=== PATIENT | male | born 1965 | race African-American/Black ===

== ENCOUNTER 2024-05-05 09:26 | Outpatient (AMB) | payer BC, SELFPAY ==
[2024-05-05 09:29] VITALS: BP 162/86; PULSE 87; O2SAT 96; BMI 39.2
--- NOTE | 2024-05-05 09:29 | HO.NEPHOV_ITS ---
Vital Signs 05/05/24 09:29 Height 6 ft Weight 289 lb BMI 39.2 BP 162/86 H Blood Pressure Location Lt brachial Position Sitting Pulse 87 Pulse Source Pulse Oximeter Pulse Oximetry (%) 96 Oxygen Delivery Method Room Air Intake Visit Reasons: ENP: Htn Canvas Shrinker Required: No Accompanied by: Self / Same As Patient Allergies No Known Allergies Allergy (Verified 05/05/24 09:31) Medication List - Last Reconciled 05/05/24 by Rich Rose MD amlodipine 5 mg PO DAILY aspirin 81 mg PO DAILY atorvastatin 40 mg PO DAILY carvedilol 12.5 mg PO DAILY irbesartan 300 mg PO DAILY metformin ER 500 mg PO DAILY semaglutide (Ozempic) 0.25 mg subcut QWEEK sildenafil 100 mg PO DAILY PRN tizanidine 4 mg PO BID PRN HPI Comments Details: Tommy is a pleasant 58-year-old man with a history of longstanding hypertension and diabetes mellitus since age of 39. He has a history of obesity as well. He has been referred for evaluation of resistant hypertension. Blood pressure has been difficult to control. He is on 3 antihypertensive medications. He was significantly obesity and recently started on Ozempic about 3 weeks ago. There has been no weight loss yet. He has a history of snoring. He wakes up multiple times at night to urinate. No dysuria urgency increased frequency. No palpitations no sweating. COUNT INCLUDES THE [facility] Medical History (Updated 05/05/24 @ 09:53 by Rich Rose MD) Tobacco abuse Chronic pain of both knees Type 2 diabetes mellitus with renal manifestations MELANIE (obstructive sleep apnea) Restrictive lung disease RLS (restless legs syndrome) Hypertension Hyperlipidemia Gout Surgical History History of shoulder surgery (~01/2011) Hx of colonoscopy Family History Mother Colon cancer HTN (hypertension) DJD (degenerative joint disease) Father Heart attack Review of Systems Const Denies fever(s) and Denies weight loss Card Denies chest pain Resp Denies cough and Denies hemoptysis GI Denies abdominal pain, Denies diarrhea and Denies nausea Musc Denies back pain Neuro Denies focal weakness Physical Exam Vital Signs: Last Vital Signs Pulse 87 03/26/25 09:29 BP 162/86 H 05/05/24 09:29 Pulse Ox 96 05/05/24 09:29 Oxygen Delivery Method Room Air 05/05/24 09:29 BMI result Body Mass Index 39.2 Const General: comfortable Nutritional Appearance: well nourished Orientation/consciousness: patient oriented x3 HEENT Head: No normal to inspection Mouth: moist mucous membranes Neck Neck: Yes supple and Yes no JVD Resp Auscultation: clear to auscultation bilaterally and no rales Cardio Jugular venous distension: no JVD Palpation: no palpable S3 and no palpable S4 Heart sounds: no rubs GI Palpation (GI): Soft to palpation and nontender Percussion: No Fluid wave present General: Yes no CVA tenderness Back/Spine/Pelvis Back: no CVA tenderness Skin General skin exam: no rashes or lesions noted Neuro General: patient oriented x3 Extrem General: Yes no pedal edema and No clubbing Results Reviewed Results Reviewed: Labs pending Nephrology Results: No Data to Display Assessment & Plan Assessment & Plan (1) Hypertension: Comment: Resistant hypertension in the setting of obesity and diabetes mellitus. He might have underlying obstructive sleep apnea which needs to be evaluated. Code(s): I10 - Essential (primary) hypertension Category: Medical Plan: Obtain 24 hour ambulatory blood pressure monitoring Stay on low-sodium diet Needs weight loss. We will referred for sleep evaluation to rule out sleep apnea. (2) Diabetes mellitus: Comment: Recent A1c is 11.5% Code(s): E11.9 - Type 2 diabetes mellitus without complications Category: Medical Plan Goal is to maintain A1c less than 7%. Discussed importance of tight control blood sugar to slow the portion disease We will screen for chronic kidney disease including urine protein creatinine ratio. Orders: Orders AMB 24 HR B/P Monitor PLACEMENT Today I10 - Essential (primary) hypertension UA and rflx microscopic Today E11.9 - Type 2 diabetes mellitus without complications, I10 - Essential (primary) hypertension Comprehensive Met. Panel Today E11.9 - Type 2 diabetes mellitus without complications, I10 - Essential (primary) hypertension Complete Blood Count no Diff Today E11.9 - Type 2 diabetes mellitus without complications, I10 - Essential (primary) hypertension Total Protein Urine Random Today E11.9 - Type 2 diabetes mellitus without complications, I10 - Essential (primary) hypertension Creatinine Urine Today E11.9 - Type 2 diabetes mellitus without complications, I10 - Essential (primary) hypertension Referrals Sleep Medicine Referral I10 - Essential (primary) hypertension Coding Level of Care Code New Pt Level 5 (02851) Diagnoses Hypertension I10 Diabetes mellitus E11.9
== END 2024-05-05 09:49 | disposition home or self-care (01) ==
PROVIDERS: PCP Internal Medicine; Referring Provider Internal Medicine; Visit Provider Internal Medicine Hypertension Specialist
DX: I10 Essential (primary) hypertension (principal); E11.9 Type 2 diabetes mellitus without complications
CPT/HCPCS: 99203

== ENCOUNTER 2024-05-05 09:26 | Outpatient (REF) | payer BC, SELFPAY ==
[2024-05-05 18:13] LABS: Appearance Urine Clear; Color Urine Yellow; Glucose Urine UA Negative (Negative); Leukocyte Esterase Urine Negative (Negative); Nitrite Urine Negative (Negative); Specific Gravity - Urine 1.015 (1.005-1.025); UMIC TRIGGER UA YES; Urine Blood Moderate (2+) (Negative); Urine Ketones Negative (Negative); Urine Protein 100 (2+) mg/dL (Neg-Trace)
[2024-05-05 18:19] LABS: Bacteria Urine None Seen (None Seen); Hyaline Casts Urine 0-2 /LPF (0-2); RBC Urine >20 /HPF (0-2); Squamous Epithelial Cell Urine 0-2 /HPF (0-2); WBC Urine 0-5 /HPF (0-5)
[2024-05-05 18:32] LABS: Hematocrit 38.2 % (42.0-52.0); Hemoglobin 12.4 g/dl (14.0-18.0); Mean Corpuscular HGB Conc 32.5 g/dl (31.0-36.0); Mean Corpuscular Hemoglobin 28.8 pg (27.0-33.0); Mean Corpuscular Volume 88.6 fL (80.0-98.0); Mean Platelet Volume 10.6 fL (9.4-12.4); Platelet Count 318 X10*3/uL (160-400); Red Blood Count 4.31 X10*6/uL (4.60-5.80); Red Cell Distribution Width 15.8 % (11.0-16.0); White Blood Count 9.3 X10*3/uL (4.8-10.8)
[2024-05-05 18:43] LABS: Creatinine Urine 114.47 mg/dL; Total Protein Urine Random 90 mg/dL (<12)
[2024-05-05 18:46] LABS: Alanine Aminotransferase 20 U/L (0-40); Alkaline Phosphatase 57 U/L (39-117); Anion Gap 10 (12-20); Aspartate Amino Transferase 21 U/L (5-37); Bilirubin Total 0.8 mg/dL (0.0-1.0); Blood Urea Nitrogen 18 mg/dL (9-16); Calcium 8.9 mg/dL (8.4-10.2); Carbon Dioxide 25 mmol/L (22-29); Chloride 109 mmol/L (96-108); Estimated Glomerular Filt Rate > 60; Glucose Random 169 mg/dL (60-115); Potassium 3.9 mmol/L (3.3-5.1); Sodium 140 mmol/L (135-145); Total Protein 7.3 g/dL (6.5-8.0)
== END 2024-05-05 09:27 | disposition home or self-care (01) ==
LOC: HO.HKASLDS 09:26
PROVIDERS: PCP Internal Medicine; Referring Provider Internal Medicine; Visit Provider Internal Medicine Hypertension Specialist
DX: I10 Essential (primary) hypertension (principal); E11.9 Type 2 diabetes mellitus without complications
CPT/HCPCS: 36415; 80053; 81001; 82570; 84156; 85027

== ENCOUNTER 2024-06-02 10:53 | Outpatient (AMB) | payer BC, SELFPAY ==
--- NOTE | 2024-06-02 10:55 | HO.NEPHOV_ITS ---
Vital Signs 06/02/24 10:56 Height 6 ft Weight 286 lb 4 oz BMI 38.8 BP 158/94 H Blood Pressure Location Lt brachial Position Sitting Pulse 99 Pulse Source Pulse Oximeter Pulse Oximetry (%) 96 Oxygen Delivery Method Room Air Intake Visit Reasons: 4-6 wks/ Conf Allergies No Known Allergies Allergy (Verified 06/02/24 10:58) Medication List - Last Reconciled 06/02/24 by Rich Rose MD amlodipine 5 mg PO DAILY aspirin 81 mg PO DAILY atorvastatin 40 mg PO DAILY carvedilol 12.5 mg PO DAILY irbesartan 300 mg PO DAILY metformin ER 500 mg PO DAILY semaglutide (Ozempic) 0.25 mg subcut QWEEK sildenafil 100 mg PO DAILY PRN tizanidine 4 mg PO BID PRN HPI Comments Details: Tommy is a pleasant 59-year-old man with a history of longstanding hypertension and diabetes mellitus since age of 39. He has a history of obesity as well. He has been referred for evaluation of resistant hypertension. Blood pressure has been difficult to control. He is on 3 antihypertensive medications. He was significantly obesity and recently started on Ozempic about 3 weeks ago. There has been no weight loss yet. He has a history of snoring. He wakes up multiple times at night to urinate. No dysuria urgency increased frequency. No palpitations no sweating. 06.02.24 Here for follow up Lost few lbs Still has edema Waiting for ABPM And Sleep evaluation [facility] Medical History Tobacco abuse Chronic pain of both knees Type 2 diabetes mellitus with renal manifestations MELANIE (obstructive sleep apnea) Restrictive lung disease RLS (restless legs syndrome) Hypertension Hyperlipidemia Gout Surgical History History of shoulder surgery (~01/2011) Hx of colonoscopy Family History Mother Colon cancer HTN (hypertension) DJD (degenerative joint disease) Father Heart attack Physical Exam Vital Signs: Last Vital Signs Pulse 99 06/02/24 10:56 BP 158/94 H 06/02/24 10:56 Pulse Ox 96 06/02/24 10:56 Oxygen Delivery Method Room Air 06/02/24 10:56 BMI result Body Mass Index 38.8 Const General: comfortable Nutritional Appearance: well nourished Orientation/consciousness: patient oriented x3 HEENT Head: No normal to inspection Mouth: moist mucous membranes Neck Neck: Yes supple and Yes no JVD Resp Auscultation: clear to auscultation bilaterally and no rales Cardio Jugular venous distension: no JVD Palpation: no palpable S3 and no palpable S4 Heart sounds: no rubs GI Palpation (GI): Soft to palpation and nontender Percussion: No Fluid wave present General: Yes no CVA tenderness Back/Spine/Pelvis Back: no CVA tenderness Skin General skin exam: no rashes or lesions noted Neuro General: patient oriented x3 Extrem General: Yes no pedal edema and No clubbing Results Reviewed Nephrology Results: Hgb 12.4 g/dl (14.0-18.0) L 05/05/24 WBC 9.3 X10*3/uL (4.8-10.8) 05/05/24 Plt Count 318 X10*3/uL (160-400) 05/05/24 Sodium 140 mmol/L (135-145) 05/05/24 Potassium 3.9 mmol/L (3.3-5.1) 05/05/24 Chloride 109 mmol/L (96-108) H 05/05/24 Carbon Dioxide 25 mmol/L (22-29) 05/05/24 BUN 18 mg/dL (9-16) H 05/05/24 Creatinine 1.15 mg/dL (0.5-1.4) 05/05/24 Calcium 8.9 mg/dL (8.4-10.2) 05/05/24 Urine Protein 100 (2+) mg/dL (Neg-Trace) H 05/05/24 Urine Creatinine 114.47 mg/dL 05/05/24 Assessment & Plan Assessment & Plan (1) Hypertension: Comment: Resistant hypertension in the setting of obesity and diabetes mellitus. He might have underlying obstructive sleep apnea which needs to be evaluated. Code(s): I10 - Essential (primary) hypertension Category: Medical Plan: Increase Coreg to 25 mg BID from 12.5 mg BID Obtain 24 hour ambulatory blood pressure monitoring ( reordered) Stay on low-sodium diet Needs weight loss. Await sleep evaluation to rule out sleep apnea. (2) Diabetes mellitus: Comment: Recent A1c is 11.5% Code(s): E11.9 - Type 2 diabetes mellitus without complications Category: Medical (3) Proteinuria: Code(s): R80.9 - Proteinuria, unspecified Category: Medical Plan: Keep on ARB Discussed weight loss and tight controll of Blood sugar and BP Needs weight loss Plan Goal is to maintain A1c less than 7%. Discussed importance of tight control blood sugar to slow the portion disease We will screen for chronic kidney disease including urine protein creatinine ratio. Orders: Orders AMB 24 HR B/P Monitor PLACEMENT Today I10 - Essential (primary) hypertension Basic Metabolic Panel 3 Months E11.9 - Type 2 diabetes mellitus without complications, I10 - Essential (primary) hypertension, R80.9 - Proteinuria, unspecified Medications: Changed From carvedilol must administer with a meal/food 25 mg PO DAILY To carvedilol must administer with a meal/food 25 mg PO BID 60 tabs 3RF Coding Level of Care Code Est Pt Level 4 (09492) Diagnoses Hypertension I10 Diabetes mellitus E11.9 Proteinuria R80.9
[2024-06-02 10:56] VITALS: BP 158/94; PULSE 99; O2SAT 96; BMI 38.8
--- OUTSIDE RECORDS SUMMARY | 2024-06-02 13:04 | XMS_ITS | Clinical Summary ---
Author Organization [address] [facility] Address [address] [place] [address] Phone Care Team Providers Care Air Saw Operator Name Role Phone Aldo Rogers MD Primary Care Provider Allergies No known active allergies Medications amLODIPine (NORVASC) 5 mg tablet Take 1 tablet (5 mg total) by mouth 2 (two) times a day. 3 Active aspirin 81 mg EC tablet Take 1 tablet (81 mg total) by mouth. 1 Active atorvastatin (LIPITOR) 40 mg tablet Take 1 tablet (40 mg total) by mouth 1 (one) time each day. 3 Active blood pressure test kit (BLOOD PRESSURE MONITOR [facility]) Check Blood Pressure three times weekly. Record values and bring list into all appointments. 7 Active coenzyme Q-10 100 mg capsule Take 1 capsule (100 mg total) by mouth. Active blood sugar diagnostic (FreeStyle Lite Strips) test strip Check twice a day 2 Active Ozempic 0.25 mg or 0.5 mg (2 mg/3 mL) injection pen INJECT 0.25MG UNDER THE SKIN EVERY 7 DAYS FOR THE FIRST MONTH, AFTER THE FIRST MONTH INCREASE TO 0.5 MG EVERY 7 DAYS 3 mL 5 4 Active metFORMIN XR (GLUCOPHAGE-XR) 500 mg 24 hr tablet TAKE 1 TABLET(500 MG) BY MOUTH 1 TIME EACH DAY 60 tablet 1 5 Active sildenafiL (VIAGRA) 100 mg tablet Take 1 tablet (100 mg total) by mouth if needed for erectile dysfunction. 10 tablet 3 5 05/28/19 Active carvediloL (COREG) 12.5 mg tablet Take 1 tablet (12.5 mg total) by mouth 2 (two) times a day with meals. 180 tablet 1 Active blood-glucose meter kit by Not Applicable route 2 (two) times a day. 1 kit 1 Active tiZANidine (ZANAFLEX) 4 mg tablet Take 1 tablet (4 mg total) by mouth 1 (one) time each day if needed for muscle spasms. 30 tablet 3 Active irbesartan (AVAPRO) 300 mg tablet Take 1 tablet (300 mg total) by mouth 1 (one) time each day. 90 tablet 1 Active Active Problems Problem Noted Date Diagnosed Date Tobacco abuse 04/07/2023 Chronic pain of both knees 12/30/2017 Type 2 diabetes mellitus wit h renal manifestations ([facility] V24, [facility] V28) 12/24/2017 Obstructive sleep apnea 10/30/2016 Restrictive lung disease 10/30/2016 RLS (restless legs syndrome) 02/08/2011 HTN (hypertension) 02/12/2010 Microalbuminuria 12/01/2008 Hyperlipidemia 12/01/2007 Gout 12/24/2006 Encounters Date Type Department Care Team Description 04/29/2024 Telephone Internal Medicine [address] [phone] Aldo Rogers MD faxed order (L&C) 04/27/2024 Telephone Internal Medicine [address] [phone] Aldo Rogers MD 04/22/2024 9:15 AM EDT Office Visit Internal Medicine [address] [phone] Aldo Rogers MD Primary hypertension (Primary Dx); Diabetes mellitus type 1.5, managed as type 2 ([facility] V24, [facility] V28); Hypercholesterolemia; Midline low back pain with bilateral sciatica, unspecified chronicity 04/22/2024 Telephone Internal Medicine [address] [phone] Aldo Rogers MD from Last 3 Months Immunizations Name Administration Dates Next Due Influenza trivalent, with pr eservative (Fluzone; Afluria) 6mo and older 01/11/2011 Td Tetanus diptheria (Tdvax) 7yo and older 02/11 Surgical History Surgery Date Site/Laterality Comments SHOULDER SURGERY 01/24/11 PROCEDURE: HISTORICAL SHOULDER SURGERY; COMMENT: right Rory COLONOSCOPY 10/15 PROCEDURE: HISTORICAL COLONOSCOPY; COMMENT: Angel; neg; R 10 y Medical History Medical History Date Comments Tobacco abuse 12/24/2006 DX:Tobacco abuse Gout 12/24/2006 DX:Gout Unspecified essential hypertension 02/12/2010 DX:Unspecified essential hypertension Hypercholesteremia 12/01/2007 DX:Hyperchole steremia Obstructive sleep apnea syndrome 10/30/2016 DX:Obstructive sleep apnea syndrome Proteinuria 12/01/2008 DX:Proteinuria Restrictive lung disease 10/30/2016 DX:Rest rictive lung disease RLS (restless legs syndrome) 02/08/2011 DX: RLS (restless legs syndrome) Type 2 diabetes mellitus wit h renal manifestations (CMS/HCC V24, CMS/HCC V28) 02/18/2010 DX:Type 2 diabetes mellitus with renal manifestations ([facility]) Microalbuminuria 12/01/2008 DX:Microalbumin uria HTN (hypertension) 02/12/2010 DX:HTN (hyper tension) Family History Medical History Relation Name Comments Heart attack Father 40s Colon cancer Mother HTN,DJD Blindness Neg Hx Cataracts Neg Hx Glaucoma Neg Hx Macular degeneration Neg Hx Strabismus Neg Hx Relation Name Status Comments Father Mother Social History Tobacco Use Types Packs/Day Years Used Date Smoking Tobacco: Former Cigarettes Smokeless Tobacco: Never Alcohol Use Standard Drinks/Week Comments Yes 0 (1 standard drink = 0.6 oz pur e alcohol) Sex and Gender Information Value Date Recorded Sex Assigned at Not on file Legal Sex Male 12:36 AM EST Gender Identity Not on file Sexual Orientation Not on file Obstetrics History Last Filed Vital Signs Vital Sign Reading Time Taken Comments Blood Pressure 160/92 04/22/2024 9:28 AM EDT Pulse 85 04/22/2024 9:28 AM EDT Temperature 35.8 ??C (96.4 ??F) 04/22/2024 9:28 AM ED T Respiratory Rate - - Oxygen Saturation 97% 04/22/2024 9:28 AM EDT Inhaled Oxygen Concentration - - Weight 129 kg (283 lb 6.4 oz) 04/22/2024 9:28 AM EDT Height 182.9 cm (6') 07/21/2023 1:00 PM EDT Body Mass Index 38.44 07/21/2023 1:00 PM EDT Plan of Treatment Upcoming Encounters Date Type Department Care Team (Late st Contact Info) Description 07/28/2024 9:30 AM EDT Office Visit Internal Medicine - [place] [address] [facility] [address] [place] [phone] Aldo Rogers MD [address] [facility] [address] [place] [address] Health Maintenance Due Date Last Done Comments Pneumococcal Vaccine: 50+ Years (1 of 2 - PCV) 05/24/1983 Pneumococcal Vaccine: Pediatrics (0 to 5 Years) and At-Risk Patients (6 to 64 Years) (1 of 2 - PCV) 05/24/1983 Diabetes: Annual Foot Exam 02/12/2011 02/12/2010 Diabetes: Annual Retina Eye Exam 01/23/2012 01/22/2011 DTaP,Tdap,and Td Vaccines (2 - Td or Tdap) 02/11/2014 02/12/2004 Zoster Vaccines (1 of 2) 2014 Depression Screening 01/20/2022 Diabetes: Annual Urine Albumin-Creatinine Ratio (uACR) 01/20/2022 06/01/2018 HIV Screening 01/20/2022 Social Influencers of Health Screening 01/20/2022 Colorectal Cancer Screening: Colonoscopy 09/30/2023 09/29/2018 COVID-19 Vaccine (2023-2 5 season) 2023 04/07/2021, 06/01/2020, 05/04/2020 Diabetes: Blood Sugar Contro l Test (HGBA1C) 01/20/2024 07/21/2023, 03/17/2023 RSV Immunization Adult Patients (1 - Risk 60-74 years 1-dose series) 2024 Diabetes: Annual GFR (Glomerular Filtration Rate) 09/28/2024 09/29/2023 Hypertension/CHF/CAD Annual BMP Blood Test 09/28/2024 09/29/2023 Influenza Vaccine (Season Ended) 2024 01/11/2011 Cholesterol Screening (Lipid Panel) 03/17/2028 03/17/2023 Hepatitis C Screening Completed 01/17/2011 HIB Vaccines Aged Out No longer eligi ble based on patient's age to complete this topic HPV Vaccines Aged Out No longer eligi ble based on patient's age to complete this topic Hepatitis A Vaccines Aged Out No long er eligible based on patient's age to complete this topic Hepatitis B Vaccines Aged Out No long er eligible based on patient's age to complete this topic IPV Vaccines Aged Out No longer eligi ble based on patient's age to complete this topic MMR Vaccines Aged Out No longer eligi ble based on patient's age to complete this topic Meningococcal ACWY Vaccine Aged Out N o longer eligible based on patient's age to complete this topic Meningococcal B Vaccine Aged Out No l onger eligible based on patient's age to complete this topic RSV Immunization Patients Under 20 months Aged Out No longer eligible b ased on patient's age to complete this topic Varicella Vaccines Aged Out No longer eligible based on patient's age to complete this topic Procedures Procedure Name Priority Date/Time Associated Diagnosis Comments EXTERNAL CLINICAL LAB 05/05/2024 EXTERNAL CLINICAL LAB 05/05/2024 HEMOGLOBIN A1C Routine 03/17/2023 LIPID PANEL Routine 03/17/2023 COLONOSCOPY Routine 09/29/2018 URINE ALBUMIN CREATININE RATIO Routine 06/01/2018 HEPATITIS C SCREENING Routine 01/17/2011 from Last 3 Months or Most Recently Relevant to Health Maintenance Results * External clinical lab (05/05/2024) Only the most recent of2 resultswithin the time period is included. us Provider [facility] LAB BLOOD ORDERABLES Fin al Result * Hemoglobin A1c (03/17/2023) Hemoglobin A1C 11.5 % Blood Venous blood specimen / Unknown Result [facility] Provider LAB BLOOD ORDERABLES Mar l Result * Lipid panel (03/17/2023) [facility] LDL/HDL Ratio 4 Triglycerides 187 mg/dL Cholesterol 175 mg/dL HDL 44 mg/dL LDL Cholesterol 94 mg/dL Blood Venous blood specimen / Unknown Result [facility] Provider LAB BLOOD ORDERABLES Mar l Result * Colonoscopy (09/29/2018) Pathologist Counts include 234 beds at the [facility] Colonoscopy Negative Anatomical Region Laterality Modality Other Result [facility] Provider HEALTH MAINTENANCE Final Result * Urine Albumin Creatinine Ratio (06/01/2018) [facility] Urine Albumin Creatinine Ratio 222.7 Result [facility] Provider HEALTH MAINTENANCE Final Result * Hepatitis C Screening (01/17/2011) [facility] Hepatitis C Screening Negative Result [facility] Provider HEALTH MAINTENANCE Final Result from Last 3 Months or Most Recently Relevant to Health Maintenance Insurance Advance Directives Documents on File Type Date Recorded 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 Health Care Decision (hx) 07/15/2020 AD HERNANDEZ DIRECTIVE Health Care Decision (hx) 07/15/2020 AD HERNANDEZ DIRECTIVE Health Care Decision (hx) 07/15/2020 AD HERNANDEZ DIRECTIVE Health Care Decision (hx) 11/15/2013 AD HERNANDEZ DIRECTIVE Health Care Decision (hx) 11/15/2013 AD HERNANDEZ DIRECTIVE Health Care Decision (hx) 11/15/2013 AD HERNANDEZ DIRECTIVE Health Care Decision (hx) 11/12/2013 AD HERNANDEZ DIRECTIVE Health Care Decision (hx) 11/12/2013 AD HERNANDEZ DIRECTIVE Health Care Decision (hx) 11/12/2013 AD HERNANDEZ DIRECTIVE Care Teams Air Saw Operator Relationship Specialty Start Date End Date Aldo Rogers MD [address] [place] [address] PCP - General Internal Medicine 12/30/17
== END 2024-06-02 11:17 | disposition home or self-care (01) ==
LOC: HO.HKAS 10:54
PROVIDERS: PCP Internal Medicine; Visit Provider Internal Medicine Hypertension Specialist
DX: I10 Essential (primary) hypertension (principal); E11.9 Type 2 diabetes mellitus without complications; R80.9 Proteinuria, unspecified
CPT/HCPCS: 99214

== ENCOUNTER 2024-07-08 14:56 | Outpatient (AMB) | payer BC, SELFPAY ==
[2024-07-08 14:58] VITALS: BP 156/94; PULSE 92; O2SAT 96; BMI 38.8
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
== END 2024-07-08 15:57 | disposition home or self-care (01) ==
LOC: HO.HSMS 14:57
PROVIDERS: PCP Internal Medicine; Visit Provider Physician Assistant Medical
DX: H81.90 Unspecified disorder of vestibular function, unspecified ear (principal); R26.89 Other abnormalities of gait and mobility; R41.89 Other symptoms and signs involving cognitive functions and awareness; G47.19 Other hypersomnia
CPT/HCPCS: 99204

== ENCOUNTER 2024-07-20 09:07 | Outpatient (REF) | payer BC, SELFPAY ==
[2024-07-20 18:19] LABS: Estimated Average Glucose 163 mg/dL; Hemoglobin A1c % 7.3 % (<6.0)
[2024-07-20 18:48] LABS: Alanine Aminotransferase 25 U/L (0-40); Albumin Level 4.4 g/dL (3.5-5.0); Alkaline Phosphatase 58 U/L (39-117); Anion Gap 13 (12-20); Aspartate Amino Transferase 23 U/L (5-37); Bilirubin Total 0.7 mg/dL (0.0-1.0); Blood Urea Nitrogen 13 mg/dL (9-16); Calcium 9.2 mg/dL (8.4-10.2); Carbon Dioxide 27 mmol/L (22-29); Chloride 105 mmol/L (96-108); Estimated Glomerular Filt Rate > 60; Glucose Random 132 mg/dL (60-115); Potassium 3.6 mmol/L (3.3-5.1); Sodium 141 mmol/L (135-145); Total Protein 7.5 g/dL (6.5-8.0)
[2024-07-20 18:54] LABS: Ferritin 289 ng/mL (20-250); TSH reflex Free T4 1.63 uIU/mL (0.32-4.0); Vitamin D 25-OH Total 14.7 ng/mL (>30)
[2024-07-20 19:06] LABS: Folate 6.1 ng/mL (> or = 4.0); Vitamin B12 397 pg/mL (200-900)
[2024-07-24 04:28] LABS: Methylmalonic Acid 142 nmol/L (69-390)
== END 2024-07-20 09:08 | disposition home or self-care (01) ==
LOC: HO.HKASLDS 09:07
PROVIDERS: Visit Provider Physician Assistant Medical
DX: R41.89 Other symptoms and signs involving cognitive functions and awareness (principal); G47.19 Other hypersomnia; R53.83 Other fatigue; G47.9 Sleep disorder, unspecified; Z13.1 Encounter for screening for diabetes mellitus
CPT/HCPCS: 36415; 80053; 82306; 82607; 82728; 82746; 83036; 83921; 84443

== ENCOUNTER 2024-07-22 14:43 | Outpatient (AMB) | payer BC, SELFPAY ==
[2024-07-22 14:53] VITALS: BP 144/72; PULSE 90; O2SAT 96; BMI 38.9
--- NOTE | 2024-07-22 14:53 | HO.NEPHOV ---
Vital Signs 07/22/24 14:53 Height 6 ft Weight 287 lb BMI 38.9 BP 144/72 H Blood Pressure Location Rt brachial Position Sitting Pulse 90 Pulse Source Pulse Oximeter Pulse Oximetry (%) 96 Oxygen Delivery Method Room Air Intake Visit Reasons: Hypertension/Conf Human Resources Office Assistant Required: No Accompanied by: Self / Same As Patient Allergies No Known Allergies Allergy (Verified 07/22/24 14:55) Medication List - Last Reconciled 07/22/24 by Rich Rose MD amlodipine 5 mg PO DAILY aspirin 81 mg PO DAILY atorvastatin 40 mg PO DAILY carvedilol 25 mg PO BID cholecalciferol (vitamin D3) 50 mcg PO DAILY 3 months MDD 2000 units irbesartan 300 mg PO DAILY metformin ER 500 mg PO DAILY semaglutide (Ozempic) 0.25 mg subcut QWEEK sildenafil 100 mg PO DAILY PRN tizanidine 4 mg PO BID PRN HPI Comments Details: Tommy is a pleasant 59-year-old man with a history of longstanding hypertension and diabetes mellitus since age of 39. He has a history of obesity as well. He has been referred for evaluation of resistant hypertension. Blood pressure has been difficult to control. He is on 3 antihypertensive medications. He was significantly obesity and recently started on Ozempic about 3 weeks ago. There has been no weight loss yet. He has a history of snoring. He wakes up multiple times at night to urinate. No dysuria urgency increased frequency. No palpitations no sweating. 06.02.24 Here for follow up Lost few lbs Still has edema Waiting for ABPM And Sleep evaluation 07/22/24 59-year-old male presenting with hypertension management concerns. He reports previous effective management with lisinopril combined with a diuretic, which was subsequently altered to irbesartan alone by a different provider, resulting in increased blood pressure levels. The patient noted fluid retention, particularly in the hands and fingers. He reports waking multiple times during the night due to the need to urinate, tracing these disturbances to around 2:30 to 3:00 A.M., despite managing fluid intake. The patient notes dissatisfaction with the current regimen and requests to return to a treatment plan that previously showed efficacy. Additionally, the patient reports an elevated serum glucose level of 7.3% and has initiated vitamin D supplementation. His kidney function has been stable, which is reassuring. He seeks a more effective approach to manage his hypertension, considering his comorbid conditions, including sleep disturbances and elevated blood glucose levels. [facility] Medical History Tobacco abuse Chronic pain of both knees Type 2 diabetes mellitus with renal manifestations MELANIE (obstructive sleep apnea) Restrictive lung disease RLS (restless legs syndrome) Hypertension Hyperlipidemia Gout Surgical History History of shoulder surgery (~01/2011) Hx of colonoscopy Family History Mother Colon cancer HTN (hypertension) DJD (degenerative joint disease) Father Heart attack Physical Exam Vital Signs: Last Vital Signs Pulse 90 07/22/24 14:53 BP 144/72 H 07/22/24 14:53 Pulse Ox 96 07/22/24 14:53 Oxygen Delivery Method Room Air 07/22/24 14:53 BMI result Body Mass Index 38.9 Results Reviewed Nephrology Results: Hgb 12.4 g/dl (14.0-18.0) L 05/05/24 WBC 9.3 X10*3/uL (4.8-10.8) 05/05/24 Plt Count 318 X10*3/uL (160-400) 05/05/24 Sodium 141 mmol/L (135-145) 07/20/24 Potassium 3.6 mmol/L (3.3-5.1) 07/20/24 Chloride 105 mmol/L (96-108) 07/20/24 Carbon Dioxide 27 mmol/L (22-29) 07/20/24 BUN 13 mg/dL (9-16) 07/20/24 Creatinine 0.97 mg/dL (0.5-1.4) 07/20/24 Calcium 9.2 mg/dL (8.4-10.2) 07/20/24 Urine Protein 100 (2+) mg/dL (Neg-Trace) H 05/05/24 Urine Creatinine 114.47 mg/dL 05/05/24 Assessment & Plan Assessment & Plan (1) Hypertension: Comment: Resistant hypertension in the setting of obesity and diabetes mellitus. He might have underlying obstructive sleep apnea which needs to be evaluated. Code(s): I10 - Essential (primary) hypertension Category: Medical Plan: Keep Coreg to 25 mg BID Obtain 24 hour ambulatory blood pressure monitoring ( reordered) Stay on low-sodium diet Needs weight loss. Await sleep evaluation to rule out sleep apnea. Change Irbesartan to Irbesartan HCT 300/12.5 QD ( 07/22/24) (2) Diabetes mellitus: Comment: Recent A1c is 11.5% Code(s): E11.9 - Type 2 diabetes mellitus without complications Category: Medical Qualifiers: Diabetes mellitus complication status: with other specified complication Diabetes mellitus type: type 2 (3) Proteinuria: Code(s): R80.9 - Proteinuria, unspecified Category: Medical Plan: Keep on ARB Discussed weight loss and tight controll of Blood sugar and BP Needs weight loss Plan Goal is to maintain A1c less than 7%. Discussed importance of tight control blood sugar to slow the portion disease We will screen for chronic kidney disease including urine protein creatinine ratio. Orders: Orders AMB 24 HR B/P Monitor PLACEMENT Today I10 - Essential (primary) hypertension Medications: New irbesartan-hydrochlorothiazide 300-12.5 mg 1 tab PO DAILY 30 tabs 3RF Coding Level of Care Code Est Pt Level 4 (84835) Diagnoses Hypertension I10 Diabetes mellitus E11.9 Diabetes mellitus complication status: with other specified complication Diabetes mellitus type: type 2 Proteinuria R80.9
== END 2024-07-22 15:17 | disposition home or self-care (01) ==
LOC: HO.HKA 14:44
PROVIDERS: PCP Internal Medicine; Visit Provider Internal Medicine Hypertension Specialist
DX: I10 Essential (primary) hypertension (principal); E11.9 Type 2 diabetes mellitus without complications; R80.9 Proteinuria, unspecified
CPT/HCPCS: 99214

== ENCOUNTER → 2024-07-22 14:43 | Outpatient (BNVA) | payer BC, SELFPAY | PROVIDERS: PCP Internal Medicine; Visit Provider Internal Medicine Hypertension Specialist ==

== ENCOUNTER 2024-08-10 14:49 | Outpatient (AMB) | payer BC, SELFPAY ==
[2024-08-10 14:52] VITALS: BP 136/82; PULSE 81; O2SAT 97; BMI 38.3
--- NOTE | 2024-08-10 14:52 | A.OFFVIS_ITS ---
Vital Signs 08/10/24 14:52 Height 6 ft Weight 282 lb 3.067 oz BMI 38.3 BP 136/82 Blood Pressure Location Rt brachial Position Sitting Pulse 81 Pulse Source Pulse Oximeter Pulse Oximetry (%) 97 Oxygen Delivery Method Room Air Intake Visit Reasons: Type 2 diabetes mellitus without complications Intake Note: New patient internally referred by Neurology for T2DM Management. Last Diabetic Eye exam: Pending appt Last Podiatry Visit: Pending appt Most Recent HgA1C: 7.3%, 07/20/2024 Random Glucose: 127 mg/dL Post Office Markup Clerk Required: No Accompanied by: Self / Same As Patient Allergies No Known Allergies Allergy (Verified 08/10/24 14:55) HPI Comments Details: This is a 59-year-old male with a past medical history of vitamin-D deficiency, proteinuria, hypertension and diabetes presenting for an initial consult for ty pe 2 diabetes. He was diagnosed with diabetes 20 years ago. Does not have his glucometer with him today. He reports that his fasting blood sugars are 120-140, and his blood sugars in the evening are in the 140s. Hemoglobin a1c 7.3% 07/20/24. Current medication regimen: Ozempic 0.5 mg weekly (taking this dose for the past 3 weeks), metformin extended release 500 mg daily. He lost 5 lb in the last few weeks. Compliance issues: None Diet: Breakfast- fruit and protein like chicken her sausage Lunch- meat and fruit Dinner- meat and fruit, fish, salad Seldomly has juice. Avoids sugary foods and desserts. Drinks water throughout the day. He drinks beer, and he does smoke cigarettes. Exercise: walks daily Hypoglycemia symptoms: none Hyperglycemia symptoms: dry mouth, polydipsia Microvascular complications: neuropathy, nephropathy (proteinuria). He is followed by Nephrology. Macrovascular complications: TIA (204) Hypertension: treated with your irbesartan-hydrochlorothiazide 300-12.5 mg daily, carvedilol 25 mg twice daily, amlodipine 5 mg daily Hyperlipidemia: treated with atorvastatin 40 mg daily LDL at goal <100. ROS: Constitutional: No unexplained weight loss, fever, chills, fatigue or night sweats. Respiratory: No shortness of breath Cardiovascular: No chest pain or pedal edema Gastrointestinal: No anorexia, nausea, vomiting or diarrhea. No abdominal pain Neurologic: Endorses mild tingling in his toes Endocrine: No cold or heat intolerance. No polyuria or polydipsia. Physical exam: Constitutional: Alert, in no distress. Neck: Supple, Full range of motion. No lymphadenopathy. No palpable thyroid masses. Respiratory: Clear to auscultation. Cardiovascular: S1 S2 regular. No murmurs. Feet: declined examination [facility] Medical History (Updated 08/10/24 @ 15:37 by SANDER Tai) Obesity Type II diabetes mellitus with neurological manifestations Tobacco abuse Chronic pain of both knees Type 2 diabetes mellitus with renal manifestations MELANIE (obstructive sleep apnea) Restrictive lung disease RLS (restless legs syndrome) Hypertension Hyperlipidemia Gout Surgical History History of shoulder surgery (~01/2011) Hx of colonoscopy Family History Mother Colon cancer HTN (hypertension) DJD (degenerative joint disease) Father Heart attack Physical Exam Vital Signs: Last Vital Signs Pulse 81 08/10/24 14:52 BP 136/82 08/10/24 14:52 Pulse Ox 97 08/10/24 14:52 Oxygen Delivery Method Room Air 08/10/24 14:52 BMI result Body Mass Index 38.3 Results Reviewed Results Reviewed: Laboratory Last Values Glucose (Clinic) 127 mg/dL (60-115) H 08/10/24 15:02 Laboratory Tests 05/05/24 05/05/24 07/20/24 09:59 10:03 09:10 Plt Count 318 Creatinine 0.97 Estimated GFR > 60 Hemoglobin A1c % 7.3 H AST 23 ALT 25 TSH 1.63 U Random Total Protein 90 H Urine Creatinine 114.47 Assessment & Plan Assessment & Plan (1) Type II diabetes mellitus with neurological manifestations: Code(s): E11.49 - Type 2 diabetes mellitus with other diabetic neurological complication Category: Medical (2) Obesity: Code(s): E66.9 - Obesity, unspecified Category: Medical Qualifiers: Obesity type: due to excess calories Obesity classification: adult class 2 (BMI 35 - 39.9) Serious obesity comorbidity presence: with serious comorbidity Body mass index: BMI 38.0-38.9 Qualified Code(s): E66.812 - Obesity, class 2; E66.01 - Morbid (severe) obesity due to excess calories; Z68.38 - Body mass index [BMI] 38.0-38.9, adult Plan Discussed pathophysiology of Type II Diabetes Mellitus with the patient in detail.? I explained the terminal manager risks and complications associated with uncontrolled diabetes including nephropathy, neuropathy, peripheral vascular disease, retinopathy, increased risk of heart disease and stroke.? Discussed lifestyle modification with the patient. Recommended 30 minutes of moderately vigorous exercise 5 days per week to promote weight loss. Continue routine eye exams for diabetes. Patient defers referral to certified adaptive physical educator and dietitian. He is not intere sted in his CGM at this time. Advised patient to bring his glucometer to all appointments. Reviewed written instructions to treat hypoglycemia. Glucose tablets sent to the pharmacy. Continue Ozempic 0.5 mg weekly. Continue metformin extended release 500 mg daily. We discussed increasing Ozempic to 1 mg and potentially discontinuing metformin at his next visit. Follow up in 1 month for type 2 diabetes. Medications: New glucose (Dex4 Glucose Quick Dissolve) until symptoms of low blood sugar are controlled 16 grams (4 x 4 gram) PO Q15M PRN 30 tabs 3RF hypoglycemia Patient Instructions: Continue Ozempic 0.5 mg weekly Continue Metformin extended release 500 mg daily If you experience low blood sugar (70), treat this by eating a chewable fruit candy like skittles or jelly beans (about 8 pieces), 4 ounces (1/2 cup) of fruit juice (not diet), 1 tablespoon of honey or 4 glucose tablets. If your blood sugar is under 55, take double the amount of one of the above. Recheck your blood sugar in 15 minutes. Coding Level of Care Code New Pt Level 4 (69861) Complex EM visit Add On G2211 Diagnoses Type II diabetes mellitus with neurological manifestations E11.49 Class 2 severe obesity due to excess calories with serious comorbidity and body mass index (BMI) of 38.0 to 38.9 in adult E66.812; E66.01; Z68.38 Obesity type: due to excess calories Obesity classification: adult class 2 (BMI 35 - 39.9) Serious obesity comorbidity presence: with serious comorbidity Body mass index: BMI 38.0-38.9
[2024-08-10 15:07] LABS: Glucose, Whole Blood 127 mg/dL (60-115)
--- OUTSIDE RECORDS SUMMARY | 2024-08-10 15:47 | XMS_ITS | Clinical Summary ---
Author Organization [address] [facility] Address [address] [place] [address] Phone Care Team Providers Care Wellness Manager Name Role Phone Aldo Rogers MD Primary Care Provider [phone] Allergies No known active allergies Medications amLODIPine (NORVASC) 5 mg tablet Take 1 tablet (5 mg total) by mouth 2 (two) times a day. 08/09/19 23 Active aspirin 81 mg EC tablet Take 1 tablet (81 mg total) by mouth. 10/20/19 21 Active blood pressure test kit (BLOOD PRESSURE MONITOR [facility]) Check Blood Pressure three times weekly. Record values and bring list into all appointments. 06/27/19 17 Active coenzyme Q-10 100 mg capsule Take 1 capsule (100 mg total) by mouth. Active blood sugar diagnostic (FreeStyle Lite Strips) test strip Check twice a day 07/25/19 22 Active metFORMIN XR (GLUCOPHAGE-X R) 500 mg 24 hr tablet TAKE 1 TABLET(500 MG) BY MOUTH 1 TIME EACH DAY 60 tablet 1 04/17/19 25 Active sildenafiL (VIAGRA) 100 mg tablet Take 1 tablet (100 mg total) by mouth if needed for erectile dysfunction. 10 tablet 3 04/23/19 25 026 Active carvediloL (COREG) 12.5 mg tablet Take 1 tablet (12.5 mg total) by mouth 2 (two) times a day with meals. 180 tablet 1 04/23/19 25 Active blood-glucose meter kit by Not Applicable route 2 (two) times a day. 1 kit 1 04/23/19 25 Active tiZANidine (ZANAFLEX) 4 mg tablet Take 1 tablet (4 mg total) by mouth 1 (one) time each day if needed for muscle spasms. 30 tablet 3 04/23/19 25 Active irbesartan (AVAPRO) 300 mg tablet Take 1 tablet (300 mg total) by mouth 1 (one) time each day. 90 tablet 1 04/29/19 25 Active atorvastatin (LIPITOR) 40 mg tablet Take 1 tablet (40 mg total) by mouth 1 (one) time each day. 90 each 07/14/19 25 025 Active Ozempic 0.25 mg or 0.5 mg (2 mg/3 mL) injection pen INJECT 0.25 MG SUBCUTANEOUS EVERY WEEK FOR FIRST 28 DAYS 3 mL 5 08/03/19 25 Active atorvastatin (LIPITOR) 40 mg tablet Take 1 tablet (40 mg total) by mouth 1 (one) time each day. 12/26/19 23 025 Discontinued(R eorder) Ozempic 0.25 mg or 0.5 mg (2 mg/3 mL) injection pen INJECT 0.25MG UNDER THE SKIN EVERY 7 DAYS FOR THE FIRST MONTH, AFTER THE FIRST MONTH INCREASE TO 0.5 MG EVERY 7 DAYS 3 mL 5 01/09/20 24 025 Discontinued Active Problems Problem Noted Date Diagnosed Date Tobacco abuse 04/07/2023 Chronic pain of both knees 12/30/2017 Type 2 diabetes mellitus wit h renal manifestations ([facility] V24, [facility] V28) 12/24/2017 Obstructive sleep apnea 10/30/2016 Restrictive lung disease 10/30/2016 RLS (restless legs syndrome) 02/08/2011 HTN (hypertension) 02/12/2010 Microalbuminuria 12/01/2008 Hyperlipidemia 12/01/2007 Gout 12/24/2006 Immunizations Name Administration Dates Next Due Influenza trivalent, with pr eservative (Fluzone; Afluria) 6mo and older 01/11/2011 Td Tetanus diptheria (Tdvax) 7yo and older 02/11 Surgical History Surgery Date Site/Laterality Comments SHOULDER SURGERY 01/24/11 PROCEDURE: HISTORICAL SHOULDER SURGERY; COMMENT: Rory, right COLONOSCOPY 10/15 PROCEDURE: HISTORICAL COLONOSCOPY; COMMENT: Angel; [...] DX:Type 2 diabetes mellitus with renal manifestations (HCC) Microalbuminuria 12/01/2008 DX:Microalbumin uria HTN (hypertension) 02/12/2010 [...] 85 04/22/2024 9:28 AM EDT Temperature 35.8 C (96.4 F) 04/22/2024 9:28 AM EDT Respiratory Rate - - Oxygen Saturation 97% 04/22/2024 9:28 AM EDT Inhaled Oxygen Concentration - - Weight 129 kg (283 lb 6.4 oz) 04/22/2024 9:28 AM EDT Height 182.9 cm (6') 07/21/2023 1:00 PM EDT Body Mass Index 38.44 07/21/2023 1:00 PM EDT Plan of Treatment Health Maintenance Due Date Last Done Comments [...] Cancer Screening: Colonoscopy 09/30/2023 09/29/2018 COVID-19 Vaccine ( - 2023-2 5 season) 2023 04/07/2021, 06/01/2020, 05/04/2020 Diabetes: [...] Procedure Name Priority Date/Time Associated Diagnosis Comments HOMOCYSTEINE, SERUM Routine 07/20/2024 9 :46 AM EDT Fatigue Sleep disorder, unspecified Other symptoms and signs involving cognitive functions and awareness Other hypersomnia HEMOGLOBIN A1C Routine 03/17/2023 LIPID PANEL Routine 03/17/2023 HM COLONOSCOPY Routine 09/29/2018 HM URINE ALBUMIN CREATININE RATIO Routine 06/01/2018 HEPATITIS C SCREENING Routine 01/17/2011 from Last 3 Months or Most Recently Relevant to Health Maintenance Results * Homocysteine, total (07/20/2024 9:46 AM EDT) Homocysteine 9.4 3.2 - 10.7 mcmol/L LAB CHEMISTRY METHOD 07/20/2024 1:34 PM EDT [facility] Blood Venous blood specimen / Unknown Venipuncture / Unknown 07/20/2024 9:46 AM EDT 07/20/2024 11:20 AM EDT Amalia BOUCHER LAB BLOOD ORDERABLES Final Resu lt [facility] [address] [place] [address], * Hemoglobin A1c (03/17/2023) Hemoglobin A1C 11.5 % Blood Venous blood specimen / Unknown Historical Provider LAB BLOOD ORDERABLES Mar l Result * Lipid panel (03/17/2023) LDL/HDL Ratio 4 Triglycerides 187 mg/dL Cholesterol 175 mg/dL HDL 44 mg/dL LDL Cholesterol 94 mg/dL Blood Venous blood specimen / Unknown Historical Provider LAB BLOOD ORDERABLES Mar l Result * Colonoscopy (09/29/2018) Pathologist [facility] Colonoscopy Negative Anatomical Region Laterality Modality Other [facility] Provider HEALTH MAINTENANCE Final Result * Urine Albumin Creatinine Ratio (06/01/2018) Pathologist [facility] Urine Albumin Creatinine Ratio 222.7 Historical Provider HEALTH MAINTENANCE Final Result * Hepatitis C Screening (01/17/2011) Pathologist [facility] Hepatitis C Screening Negative Historical Provider HEALTH MAINTENANCE Final Result from Last 3 Months or Most Recently Relevant to Health Maintenance Insurance [employer] Advance Directives Documents on File Type Date Recorded 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
== END 2024-08-10 15:32 | disposition home or self-care (01) ==
LOC: HO.ENCR 14:49
PROVIDERS: PCP Internal Medicine; Visit Provider Physician Assistant Medical
DX: E11.49 Type 2 diabetes mellitus with other diabetic neurological complication (principal); E66.812 Obesity, class 2; E66.01 Morbid (severe) obesity due to excess calories; Z68.38 Body mass index [BMI] 38.0-38.9, adult

== ENCOUNTER → 2024-08-10 14:49 | Outpatient (BNVA) | payer BC, SELFPAY | PROVIDERS: PCP Internal Medicine; Visit Provider Physician Assistant Medical | DX: E11.49 Type 2 diabetes mellitus with other diabetic neurological complication (principal) | CPT/HCPCS: 82947 ==

== ENCOUNTER → 2024-11-15 10:26 | Outpatient (BNV) | payer BC, SELFPAY | PROVIDERS: PCP Internal Medicine; Visit Provider Psychiatry & Neurology Neurology | DX: G47.33 Obstructive sleep apnea (adult) (pediatric) (principal) | CPT/HCPCS: 95806 ==

== ENCOUNTER → 2024-11-16 13:31 | Outpatient (REF) | payer BC, SELFPAY ==
--- OUTSIDE RECORDS SUMMARY | 2024-11-16 16:35 | XMS_ITS | Clinical Summary ---
Author Organization 175 [facility] Address [address] [place] [address] Phone Care Team Providers Care Instrument Man Name Role Phone Aldo Rogers MD Primary Care Provider [phone] Allergies No known active allergies Medications aspirin 81 mg EC tablet Take 1 tablet (81 mg total) by mouth. 1 Active blood pressure test kit (BLOOD PRESSURE MONITOR [facility]) Check Blood Pressure three times weekly. Record values and bring list into all appointments. 7 Active coenzyme Q-10 100 mg capsule Take 1 capsule (100 mg total) by mouth. Active blood sugar diagnostic (FreeStyle Lite Strips) test strip Check twice a day 2 Active metFORMIN XR (GLUCOPHAGE-XR ) 500 mg 24 hr tablet TAKE 1 TABLET(500 MG) BY MOUTH 1 TIME EACH DAY 60 tablet 1 5 Active sildenafiL (VIAGRA) 100 mg tablet Take 1 tablet (100 mg total) by mouth if needed for erectile dysfunction. 10 tablet 3 5 026 Active carvediloL (COREG) 12.5 mg tablet Take 1 tablet (12.5 mg total) by mouth 2 (two) times a day with meals. 180 tablet 1 5 Active blood-glucose meter kit by Not Applicable route 2 (two) times a day. 1 kit 1 5 Active tiZANidine (ZANAFLEX) 4 mg tablet Take 1 tablet (4 mg total) by mouth 1 (one) time each day if needed for muscle spasms. 30 tablet 3 5 Active irbesartan (AVAPRO) 300 mg tablet Take 1 tablet (300 mg total) by mouth 1 (one) time each day. 90 tablet 1 5 Active Ozempic 0.25 mg or 0.5 mg (2 mg/3 mL) injection pen INJECT 0.25 MG SUBCUTANEOUS EVERY WEEK FOR FIRST 28 DAYS 3 mL 5 5 Active amLODIPine (NORVASC) 10 mg tablet Take 1 tablet (10 mg total) by mouth 1 (one) time each day. 90 tablet 1 5 Active atorvastatin (LIPITOR) 40 mg tablet Take 1 tablet (40 mg total) by mouth 1 (one) time each day. 90 each 5 025 Active atorvastatin (LIPITOR) 40 mg tablet Take 1 tablet (40 mg total) by mouth 1 (one) time each day. 90 each 5 025 Discontin ued(Reord er) Active Problems Problem Noted Date Diagnosed Date Tobacco abuse 04/07/2023 Chronic pain of both knees 12/30/2017 Type 2 diabetes mellitus wit h renal manifestations ([facility] V24, [facility] V28) 12/24/2017 Obstructive sleep apnea 10/30/2016 Restrictive lung disease 10/30/2016 RLS (restless legs syndrome) 02/08/2011 HTN (hypertension) 02/12/2010 Microalbuminuria 12/01/2008 Hyperlipidemia 12/01/2007 Gout 12/24/2006 Immunizations Immunization Administration Dates Next Due Influenza trivalent, with [...] Years (1 of 2 - PCV) 05/24/1983 Diabetes: Annual Foot Exam 02/12/2011 02/12/2010 Diabetes: Annual Retina Eye Exam 01/23/2012 01/22/2011 DTaP,Tdap,and Td Vaccines (2 - Td or Tdap) 02/11/2014 02/12/2004 Zoster Vaccines (1 of 2) 2014 Diabetes: Annual Urine Albumin-Creatinine Ratio (uACR) 01/20/2022 06/01/2018 HIV Screening 01/20/2022 Social Influencers of Health Screening 01/20/2022 Colorectal Cancer Screening: Colonoscopy 09/30/2023 09/29/2018 Diabetes: Blood Sugar Contro l Test (HGBA1C) 01/20/2024 07/21/2023, 03/17/2023 Depression Screening 02/11/2024 RSV Immunization Adult Patients (1 - Risk 60-74 years 1-dose series) 2024 Diabetes: Annual GFR (Glomerular Filtration Rate) 09/28/2024 09/29/2023 Hypertension/CHF/CAD Annual BMP Blood Test 09/28/2024 09/29/2023 COVID-19 Vaccine (2024-03 6 season) 2024 04/07/2021, 06/01/2020, 05/04/2020 Influenza Vaccine (#1) 2024 01/11/2011 Cholesterol Screening (Lipid Panel) 03/17/2028 [...] Procedure Name Priority Date/Time Associated Diagnosis Comments HEMOGLOBIN A1C Routine 03/17/2023 LIPID PANEL Routine 03/17/2023 HM COLONOSCOPY Routine 09/29/2018 URINE ALBUMIN CREATININE RATIO Routine 06/01/2018 HEPATITIS C SCREENING Routine 01/17/2011 from Last 3 Months or Most Recently Relevant to Health Maintenance Results * Hemoglobin A1c (03/17/2023) Pathologist [facility] Hemoglobin A1C 11.5 % Blood Venous blood specimen / Unknown Result [facility] Provider LAB BLOOD ORDERABLES Mar l Result * Lipid panel (03/17/2023) Pathologist [facility] LDL/HDL Ratio 4 Triglycerides 187 mg/dL Cholesterol 175 mg/dL HDL 44 mg/dL LDL Cholesterol 94 mg/dL Blood Venous blood specimen / Unknown Result [facility] Provider LAB BLOOD ORDERABLES Mar l Result * Colonoscopy (09/29/2018) Pathologist [facility] Colonoscopy Negative Anatomical Region Laterality Modality Other [facility] Provider HEALTH MAINTENANCE Final Result * Urine Albumin Creatinine Ratio (06/01/2018) Pathologist [facility] Urine Albumin Creatinine Ratio 222.7 [facility] Provider HEALTH MAINTENANCE Final Result * Hepatitis C Screening (01/17/2011) Pathologist [facility] Hepatitis C Screening Negative [facility] Provider HEALTH MAINTENANCE Final Result from Last 3 Months or Most Recently Relevant to Health Maintenance Insurance [facility] Advance Directives Documents on File Type Date Recorded 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
--- OUTSIDE RECORDS SUMMARY | 2024-11-16 16:35 | XMS_ITS | Encounter Summary ---
Author Organization [facility] Address [address] [facility] [address] [place] [phone] Phone Care Team Providers Care Farm Implement Engine Mechanic Name Role Phone Pcp, Not Required Primary Care Provider Unavaila ble Encounter Details Date Type Department Care Team (Late st Contact Info) Description 03/21/2017 Procedure Pass [facility] [address] [place] [address] Social History Tobacco Use Types Packs/Day Years Used Date Smoking Tobacco: Former Cigarettes Q uit: 2017 Smokeless Tobacco: Never Alcohol Use Standard Drinks/Week Comments Yes 6 (1 standard drink = 0.6 oz pur e alcohol) Sex and Gender Information Value Date Recorded Sex Assigned at Not on file Legal Sex Male 3:46 PM EST Gender Identity Not on file Sexual Orientation Not on file documented as of this encounter Plan of Treatment Not on file documented as of this encounter Visit Diagnoses Not on filedocumented in this encounter Care Teams Farm Implement Engine Mechanic Relationship Specialty Start Date End Date Pcp, Not Required [address] [place] [id number] PCP - General 03/19/17 documented as of this encounter Additional Source Comments The information contained in this document represents components of the legal health record. It is not the complete legal health record.[facility]
--- OUTSIDE RECORDS SUMMARY | 2024-11-16 16:35 | XMS_ITS ---
[facility] Name [facility] Organization Unknown Care Team Organization Name Specialty Phone Email Start Date End Da te [facility] 09/29/2024 [facility] CLEMENTINE DURON Primary Care 12/18/2021 09/29/19 24
--- OUTSIDE RECORDS SUMMARY | 2024-11-16 16:35 | XMS_ITS | Clinical Summary ---
Author Organization [facility] Address [address] [address] Phone Care Team Providers Care Pasting Machine Offbearer Name Role Phone Pcp, Not Required Primary Care Provider Unavaila ble Allergies No known active allergies Medications atorvastatin (LIPITOR) 40 MG tablet Take 40 mg by mouth daily. Active lisinopril-hydro CHLOROthiazide (PRINZIDE,ZESTOR ETIC) 20-12.5 mg per tablet Take 1 tablet by mouth daily. Active metFORMIN (GLUCOPHAGE) 1000 MG tablet Take 1,000 mg by mouth 2 (two) times a day with meals. Active canagliflozin (INVOKANA) 100 mg tablet Take 100 mg by mouth daily. Active aspirin 81 MG EC tablet Take 81 mg by mouth daily. Active metoprolol succinate (TOPROL-XL) 50 MG 24 hr tablet Take 50 mg by mouth daily. Active coenzyme Q10 100 mg capsule Take 100 mg by mouth daily. Active amLODIPine (NORVASC) 5 MG tablet Take 5 mg by mouth daily. Active Active Problems Problem Noted Date Diagnosed Date Dyspnea on exertion 03/21/2017 MELANIE (obstructive sleep apnea) 03/21/2017 Essential hypertension 03/21/2017 Abnormal stress ECG 03/21/2017 Social History Tobacco Use Types Packs/Day Years Used Date Smoking Tobacco: Former Cigarettes Q uit: 2017 Smokeless Tobacco: Never Alcohol Use Standard Drinks/Week Comments Yes 6 (1 standard drink = 0.6 oz pur e alcohol) Education Answer Date Recorded Are you interested in more education? Not on giuseppe e 06/07/2022 Are you concerned about learning? Not on file 06/07/2022 No 06/07/2022 No 06/07/2022 Digital Access Answer Date Recorded No 07/06/2022 No 07/06/2022 No 07/06/2022 Reliable internet access at home? Not on file 07/06/2022 Device with a working camera? Not on file Sex and Gender Information Value Date Recorded Sex Assigned at Not on file Legal Sex Male 3:46 PM EST Gender Identity Not on file Sexual Orientation Not on file Last Filed Vital Signs Vital Sign Reading Time Taken Comments Blood Pressure 146/98 03/21/2017 2:00 PM EST Pulse 72 03/21/2017 2:00 PM EST Temperature 36.1 C (97 F) 03/21/2017 11:30 AM EST Respiratory Rate 11 03/21/2017 9:27 AM EST Oxygen Saturation 100% 03/21/2017 2:00 PM EST Inhaled Oxygen Concentration - - Weight 122.5 kg (270 lb) 03/17/2017 9:17 AM EST Height 182.9 cm (6') 03/17/2017 9:17 AM EST Body Mass Index 36.62 03/17/2017 9:17 AM EST Plan of Treatment Health Maintenance Due Date Last Done Comments BLOOD PRESSURE 1964 CREATININE LEVEL 1964 LIPID PANEL 1964 POTASSIUM LEVEL 1964 DEPRESSION SCREENING 1976 SMOKING Hx and SMOKELESS TOB ACCO SCREENING 1977 HEPATITIS C SCREENING 1982 HIV ONE-TIME SCREENING (18-6 5 YEARS) 1982 COLOGUARD 2009 COLONOSCOPY 2009 COLORECTAL CANCER SCREENING 2009 FIT TEST 2009 FOBT 2009 SIGMOIDOSCOPY 2009 VIRTUAL COLONOSCOPY 2009 Adult Td,Tdap Booster 02/11/2014 02/12/2004 PNEUMOCOCCAL VACCINES (50+ y ears) (1 of 1 - PCV) 2014 ZOSTER VACCINES (1 of 2) 2014 RSV VACCINE (1 - Risk 60-74 years 1-dose series) 2024 INFLUENZA VACCINE (#1) 2024 01/11/2011 COVID-19 VACCINE (2 - 2024-2 6 season) 2024 05/04/2020 HEPATITIS A VACCINES Aged Out No long er eligible based on patient's age to complete this topic HIB VACCINES Aged Out No longer eligi ble based on patient's age to complete this topic MENINGOCOCCAL VACCINES (ACWY) Aged Out No longer eligible based on patient's age to complete this topic MENINGOCOCCAL VACCINES (B) Aged Out N o longer eligible based on patient's age to complete this topic Medical Devices Implanted Type Area Tax Expert Device Identifier Shelf Expiration Date Model / Serial / Lot [place] In Shoulder Insurance Member Subscriber Plan / Payer (Ef fective 2017-Present) Name:Tommy Valadez Relation to Subscriber:Self Name:Tommy Valadez Payer ID:Not on file Group ID:Not on file Type:Medicaid Address: [address] Member Subscriber Plan / Payer (Ef fective 2017-Present) Name:Tommy Valadez Relation to Subscriber:Self Name:Tommy Valadez Payer ID:Not on file Group ID:Not on file Type:Medicaid Address: [address] CROSS [facility] CROSS OUT [facility] Member Subscriber Plan / Payer (Ef fective 2017-Present) Name:Tommy Valadez Relation to Subscriber:Self Name:Tommy Valadez Payer ID:Not on file Group ID:Not on file Type:Medicaid Address: [place] [id number] [employer] CROSS OUT [facility] BL[facility] CROSS OUT OF [facility] Member Subscriber Plan / Payer (Ef fective 2017-Present) Name:Tommy Valadez Relation to Subscriber:Self Name:Tommy Valadez Payer ID:Not on file Group ID:Not on file Type:Medicaid Address: [place] [id number] [employer] CROSS OUT [facility] [place] CROSS OUT [facility] HMO Care Teams Pasting Machine Offbearer Relationship Specialty Start Date End Date Pcp, Not Required [address] [place] [phone] PCP - General 03/19/17 Additional Source Comments The information contained in this document represents components of the legal health record. It is not the complete legal health record.[facility]
== END ==
LOC: HO.SL 13:31
PROVIDERS: PCP Internal Medicine; Visit Provider Physician Assistant Medical
DX: G47.19 Other hypersomnia (principal); G47.33 Obstructive sleep apnea (adult) (pediatric)
CPT/HCPCS: 95806

== ENCOUNTER 2024-12-10 14:18 | Outpatient (AMB) | payer BC, SELFPAY ==
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
[2024-12-10 14:42] VITALS: BP 140/90; PULSE 76; O2SAT 96; BMI 38.2
--- OUTSIDE RECORDS SUMMARY | 2024-12-10 14:58 | XMS_ITS | Encounter Summary ---
Author Organization [facility] Address [address] [facility] [address] [place] [id number] Phone Care Team Providers Care Pay Clerk Name Role Phone Pcp, Not Required Primary Care Provider Unavaila ble Encounter Details Date Type Department Care Team (Late st Contact Info) Description 03/21/2017 Procedure Pass [facility] [address] [place] [address] Social History Tobacco Use Types Packs/Day Years [...] on filedocumented in this encounter Care Teams Pay Clerk Relationship Specialty Start Date End Date Pcp, Not Required [address] [place] [id number] PCP - General 03/19/17 documented as of this encounter Additional Source Comments The information contained in this document represents components of the legal health record. It is not the complete legal health record.[facility]
--- OUTSIDE RECORDS SUMMARY | 2024-12-10 14:58 | XMS_ITS | Clinical Summary ---
Author Organization [address] [facility] Address [address] [place] [address] Phone Care Team Providers Care Freight Car Repairer Name Role Phone Aldo Rogers MD Primary Care Provider [phone] Allergies No known active allergies Medications aspirin 81 mg EC tablet Take 1 tablet (81 mg total) by mouth. 1 Active blood pressure test kit (BLOOD PRESSURE MONITOR [facility]) Check Blood Pressure three times weekly. Record values and bring list into all appointments. 7 Active coenzyme Q-10 100 mg capsule Take 1 capsule (100 mg total) by mouth. Active blood sugar diagnostic (FreeStyle Lite Strips) test strip Check twice a day 2 Active metFORMIN XR (GLUCOPHAGE-XR) 500 mg 24 hr tablet TAKE 1 TABLET(500 MG) BY MOUTH 1 TIME EACH DAY 60 tablet 1 5 Active sildenafiL (VIAGRA) 100 mg tablet Take 1 tablet (100 mg total) by mouth if needed for erectile dysfunction. 10 tablet 3 5 05/28/19 26 Active carvediloL (COREG) 12.5 mg tablet Take [...] (one) time each day. 90 each 5 01/26/20 25 Active Active Problems Problem Noted Date Diagnosed Date Tobacco abuse 04/07/2023 Chronic pain of both knees 12/30/2017 Type 2 diabetes mellitus wit h renal manifestations ([facility] V24, [facility] V28) 12/24/2017 Obstructive sleep apnea [...] (2 - Td or Tdap) 02/11/2014 02/12/2004 RSV Immunization Adult Patients (1 - Risk 50-74 years 1-dose series) 2014 Zoster Vaccines (1 of 2) 2014 Diabetes: Annual Urine Albumin-Creatinine Ratio (uACR) 01/20/2022 06/01/2018 HIV Screening 01/20/2022 Social Influencers of Health Screening 01/20/2022 Colorectal Cancer Screening: Colonoscopy 09/30/2023 09/29/2018 Diabetes: Blood Sugar Contro l Test (HGBA1C) 01/20/2024 07/21/2023, 03/17/2023 Depression Screening 02/11/2024 Diabetes: Annual GFR (Glomerular Filtration Rate) 09/28/2024 09/29/2023 Hypertension/CHF/CAD Annual BMP Blood Test 09/28/2024 09/29/2023 COVID-19 Vaccine (4 - 2024-2 6 season) 2024 04/07/2021, 06/01/2020, 05/04/2020 Influenza [...] Maintenance Results * Hemoglobin A1c (03/17/2023) Pathologist [facility] Hemoglobin A1C 11.5 % Blood Venous blood specimen / Unknown [facility] Provider LAB BLOOD ORDERABLES Mar l Result * Lipid panel (03/17/2023) Pathologist [facility] LDL/HDL Ratio 4 Triglycerides 187 mg/dL Cholesterol 175 mg/dL HDL 44 mg/dL LDL Cholesterol 94 mg/dL Blood Venous blood specimen / Unknown Result [facility] Provider LAB BLOOD ORDERABLES Mar l Result * Colonoscopy (09/29/2018) Pathologist [facility] Colonoscopy Negative Anatomical Region Laterality Modality Other Result [facility] Provider HEALTH MAINTENANCE Final Result * Urine Albumin Creatinine Ratio (06/01/2018) Pathologist [facility] Urine Albumin Creatinine Ratio 222.7 [facility] Provider HEALTH MAINTENANCE Final Result * Hepatitis C Screening (01/17/2011) Pathologist [facility] Hepatitis C Screening Negative [facility] Provider HEALTH MAINTENANCE Final Result from Last 3 Months or Most Recently Relevant to Health Maintenance Insurance [facility] Advance Directives Documents on File Type Date Recorded Patient Physical Instructor Expl anation Health Care Decision (hx) 07/15/2020 [...] (hx) 11/12/2013 AD HERNANDEZ DIRECTIVE Care Teams Freight Car Repairer Relationship Specialty Start Date End Date Aldo Rogers MD [address] [place] [address] PCP - General Internal Medicine 12/30/17
--- OUTSIDE RECORDS SUMMARY | 2024-12-10 14:58 | XMS_ITS | Clinical Summary ---
Author Organization [facility] Address [address] [address] Phone Care Team Providers Care Manager Trade Marketing Name Role Phone Pcp, Not Required Primary [...] ears) (1 of 1 - PCV) 2014 RSV VACCINE (1 - Risk 50-74 years 1-dose series) 2014 ZOSTER VACCINES (1 of 2) 2014 INFLUENZA VACCINE (#1) 2024 01/11/2011 COVID-19 VACCINE [...] this topic Medical Devices Implanted Type Area Chief Information Officer Device Identifier Shelf Expiration Date Model / Serial / Lot [place] In Shoulder Insurance Member Subscriber Plan / Payer (Ef fective 2017-Present) Name:Tommy Valadez Relation to Subscriber:Self Name:Tommy aVladez Payer ID:Not on file Group ID:Not on file Type:Medicaid Address: [address] Member Subscriber Plan / Payer (Ef fective 2017-Present) Name:Tommy Valadez Relation to Subscriber:Self Name:Tommy Valadez Payer ID:Not on file Group ID:Not on file Type:Medicaid Address: [address] [place]OSS [place] [facility] [place] Member Subscriber Plan / Payer (Ef fective 2017-Present) Name:Tommy Valadez Relation to Subscriber:Self Name:Tommy Valadez Payer ID:Not on file Group ID:Not on file Type:Medicaid Address: [place] [id number] [employer] CROSS OUT [facility] [employer] CROSS OUT OF [facility] Member Subscriber Plan / Payer (Ef fective 2017-Present) Name:Tommy Valadez Relation to Subscriber:Self Name:Tommy Valadez Payer ID:Not on file Group ID:Not on file Type:Medicaid Address: [place] [id number] [place] CROSS OUT [facility] CROSS OUT OF [facility] HMO Care Teams Manager Trade Marketing Relationship Specialty Start Date End Date Pcp, Not Required [address] [place] [id number] PCP - General 03/19/17 Additional Source Comments The information contained in this document represents components of the legal health record. It is not the complete legal health record.[facility]
== END 2024-12-10 15:17 | disposition home or self-care (01) ==
LOC: HO.HSMS 14:18
PROVIDERS: PCP Internal Medicine; Visit Provider Physician Assistant Medical
DX: G47.19 Other hypersomnia (principal); F17.200 Nicotine dependence, unspecified, uncomplicated; M53.86 Other specified dorsopathies, lumbar region; H83.2X3 Labyrinthine dysfunction, bilateral; R26.89 Other abnormalities of gait and mobility; R41.89 Other symptoms and signs involving cognitive functions and awareness; M54.31 Sciatica, right side; M54.32 Sciatica, left side; G25.81 Restless legs syndrome; D50.9 Iron deficiency anemia, unspecified; I10 Essential (primary) hypertension
CPT/HCPCS: 99214